=== PATIENT | female | born 1990 ===

== ENCOUNTER 2023-10-08 19:16 | Inpatient (IN) | payer OTHER ==
[2023-10-10] MEDS ORDERED: ALBUTEROL INHALER 60 PUFF/8 GM INHALER (MHU) INHALATION PRN (00:58)
--- NOTE | 2023-10-10 12:14 | P.CNPUL ---
History of Present Illness Consult date: 10/10/23 Requesting physician: Sidra Jaimes Reason for consult: dyspnea Chief complaint: Shortness of breath, chest pain History of present illness: This is a pleasant 36-year-old female patient who presented to the emergency room yesterday with complaints of shortness of breath and chest pain. She is approximately 35 weeks . She was seen and evaluated by [employer] PROGRAM COORDINATOR. She was placed on oxygen and her symptoms resolved fairly quickly. She did undergo a CT angiogram which ruled out pulmonary embolism. She is seen today in consultation in the OB department. She is awake and alert in no acute distress. Feeling much better today compared to yesterday. She states she does have a history of very mild intermittent asthma and rarely uses any inhalers in the past. Her thus far had been uncomplicated. She is maintaining good O2 saturations in the 90s on room air. She has been afebrile. Hemodynamically stable. Review of Systems REVIEW OF SYSTEMS: CONSTITUTIONAL: Denies any recent significant weight loss or weight gain. EYES: Denies change in vision. EARS, NOSE, MOUTH, THROAT: Denies headaches, denies sore throat. CARDIOVASCULAR: Positive for chest pain, no palpitations or syncopal episodes. RESPIRATORY: Positive for shortness of breath, wheeze, no cough, congestion or hemoptysis. GASTROINTESTINAL: Denies change in appetite, denies abdominal pain GENITOURINARY: Denies hematuria, denies infections. MUSKULOSKELETAL: Denies pain, denies swelling. INTEGUMENTARY: Denies rash, denies eczema. NEUROLOGICAL: Denies recent memory loss, no recent seizure activity. PSYCHIATRIC: Denies anxiety, denies depression. HEMATOLOGIC/LYMPHATIC: Denies anemia, denies enlarged lymph nodes. Medications and Allergies Allergies Allergy/AdvReac Type Severity Reaction Status Date / Time No Known Allergies Allergy Verified 10/10/23 00:58 Physical Exam Vitals: Intake and Output 10/09/23 10/10/23 10/10/23 22:59 06:59 14:59 Other: # Voids 3 Weight 121.109 kg GENERAL EXAM: Alert, pleasant 36-year-old female, on room air, comfortable in no apparent distress. HEAD: Normocephalic. EYES: Normal reaction of pupils, equal size. NOSE: Clear with pink turbinates. THROAT: No erythema or exudates. NECK: No masses, no JVD. CHEST: No chest wall deformity. LUNGS: Equal air entry with no crackles, wheeze, rhonchi or dullness. CVS: S1 and S2 normal with no audible murmur, regular rhythm. ABDOMEN: , normal bowel sounds, no guarding or rigidity. SPINE: No scoliosis or deformity SKIN: No rashes CENTRAL NERVOUS SYSTEM: No focal deficits, tone is normal in all 4 extremities. EXTREMITIES: There is no peripheral edema. No clubbing, no cyanosis. Peripheral pulses are intact. Results - Diagnostic Findings Chest x-ray: image reviewed CT scan - chest: image reviewed Assessment and Plan Assessment: Acute hypoxic respiratory failure secondary to acute exacerbation of mild intermittent chronic bronchial asthma. Pulmonary embolism ruled out 35 weeks gestational Plan: The patient was seen and evaluated CT angiogram, labs and medications reviewed Currently stable and on room air Seen and evaluated by Dr. Perera Cleared for discharge from the pulmonary standpoint Follow with her OB and PCP this week I have personally seen and examined the patient, performed the documentation and the assessment and plan as written. Number of minutes spent on the visit: 20.
--- NOTE | 2023-10-10 12:43 | P.PN ---
Subjective Progress Note Date: 10/10/23 Principal diagnosis: sob Patient currently doing well. Denies having any shortness of breath. No fevers or chills. No chest pain. No nausea or vomiting. Pulse oximetry is stable on room air currently. Objective - Vital Signs Vital signs: Intake & Output 10/09/23 10/10/23 10/10/23 18:59 06:59 18:59 Weight 121.109 kg Other: # Voids 3 - Exam Constitutional: No acute distress, conversant, pleasant Eyes: Anicteric sclerae, moist conjunctiva, no lid-lag Pupils equal round reactive to light ENMT: NC/AT Oropharynx clear, no erythema, exudates Neck: Supple, FROM, no masses, or JVD No carotid bruits No thyromegaly Lungs: Clear to auscultation Clear to percussion Normal respiratory effort, no accessory muscle use Cardiovascular: Heart regular in rate and rhythm, No murmurs, gallops, or rubs No peripheral edema Abdominal: Soft Nontender, no guarding, rebound or rigidity Abdomen moving with respiration Normoactive bowel sounds No hepatomegaly, No splenomegaly No palpable mass No abdominal wall hernia noted Skin: Normal temperature, tone, texture, turgor No induration No subcutaneous nodules No rash, lesions No ulcers Extremities: No digital cyanosis No clubbing Pedal pulses intact and symmetrical Radial pulses intact and symmetrical No calf tenderness Psychiatric: Alert and oriented to person, place and time Appropriate affect fair judgement Neuro Muscles Strength 5/5 in all 4 extremities Sensation to light touch grossly present throughout Cranial nerves II-XII grossly intact No focal sensory deficits Lymphatics: no palpable cervical or supraclavicular , or inguinal lymph nodes Assessment and Plan Plan: Acute hypoxic respiratory failure secondary to acute exacerbation of mild intermittent chronic bronchial asthma. Pulmonary embolism ruled out CT angiogram of the chest was reviewed, negative for PE Case was discussed with pulmonary service Dr. Mulugeta haider for discharge by primary service 35 weeks gestational Per OB management
--- NOTE | 2023-10-21 17:26 | XR ---
Report Patient: Patsy Cleveland Ordering Physician: Unknown, Unknown ID: [id number] Phone, Pager: Phone: N/A Pager: N/A : 1990 Age/Gender: 32Y, F Primary Location: N/A Procedure: XR Chest 1 View Study Date: 10/09/2023 10:14:00 AM EXAMINATION TYPE: XR chest 1V DATE OF EXAM: 10/09/2023 COMPARISON: NONE HISTORY: 32 year-old female shortness of breath and syncope TECHNIQUE: Single frontal view of the chest is obtained. FINDINGS: Cardiomediastinal silhouette, aorta, and pulmonary vasculature are within normal limits. H azy lower lung densities related to overlying soft tissue and portable technique. No consolidation or pleural effusion. IMPRESSION: No acute cardiopulmonary process.
--- NOTE | 2023-10-25 11:08 | CT ---
EXAMINATION TYPE: CT chest angio for PE DATE OF EXAM: 10/09/2023 COMPARISON: Radiograph same date HISTORY: 32-year-old female shortness of breath and chest pain, assess for PE. Patient 35 weeks pregn ant TECHNIQUE: Contiguous axial scanning of the chest performed with IV Contrast, patient injected with 1 00 mL of Isovue 370. Coronal/sagittal MIP reconstructions performed. CT DLP: 509.5 mGycm Automated exposure control for dose reduction was used. FINDINGS: The heart is normal size with trace anterior pericardial fluid. No flattening of the interventricular septum or reflux of contrast into the hepatic veins. The aorta is normal caliber with aberrant right subclavian artery which takes a retroesophageal cours e. No thoracic lymph adenopathy by CT size criteria. Satisfactory opacification of the pulmonary arterial system. There is excessive breathing motion in t he lower lungs. Assessment for emboli here and the segmental and subsegmental branches is limited non diagnostic due to the degree of motion. No large central pulmonary embolus. No pulmonary embolus seen in the upper midlungs. No consolidation or pleural effusion. Visualized upper abdomen shows mild splenomegaly at 14.2 cm. Partially visualized fetus. Bones: No osseous destructive process. IMPRESSION: 1. ASSESSMENT OF THE SEGMENTAL AND SUBSEGMENTAL BRANCHES OF THE LOWER LUNGS IS VERY LIMITED TO NONDIA GNOSTIC DUE TO THE PATIENT BREATHING. NO LARGE CENTRAL/LOBAR BRANCH EMBOLUS OR EVIDENCE FOR PULMONARY EMBOLUS IN THE UPPER OR MID LUNGS. 2. NO ACUTE PULMONARY PROCESS. 3. MILD SPLENOMEGALY AT 14.2 CM.
--- NOTE | 2023-11-03 16:15 | US ---
Report Patient: Patsy Cleveland Ordering Physician: Unknown, Unknown ID: [id number] Phone, Pager: Phone: N/A Pager: N/A : 1990 Age/Gender: 32Y, F Primary Location: N/A Procedure: US OB anatomy transabd Study Date: 10/08/2023 8:41:00 PM EXAMINATION TYPE: US OB anatomy transabd DATE OF EXAM: 10/08/2023 COMPARISON: NONE CLINICAL INDICATION: 32 year-old female chest pain with scant care, G1, no contractions or b leeding. TECHNIQUE: Transabdominal EXAM MEASUREMENTS: GESTATIONAL AGE / DATING Estimated LMP: 01/31/2023 Physician Established: (35 weeks/5 days) EDC: 11/07/2023 Dates by Current Scan for: (34 weeks/4 days) EDC: 11/15/2023 SURVEY IUP: Single PLACENTA: Anterior PREVIA: No previa DOMINIQUE: 11.8 cm lower end of the normal range CERVICAL LENGTH: Not assessed by transabdominal scanning. BIOMETRY PRESENTATION: Cephalic BPD: 8.32 cm 33 weeks / 4 days HC: 31.1 cm 34 weeks / 6 days AC: 30.3 cm 34 weeks / 2 days FL: 6.83 cm 35 weeks / 1 days ESTIMATED WEIGHT IN GRAMS: 2430 grams ESTIMATED WEIGHT IN LBS/OZ: 5 lbs. 6 oz. WEIGHT PERCENTAGE BASED ON ESTABLISHED DATE: 18 % HC/AC: 1.03 Normal FL/AC: 23% Normal HEART RATE: 147 bpm The survey is limited due to patient's gestational age. ANATOMY SEEN (appears to be within normal limits allowing for limitations of the patient's gestationa l age): Four Chamber Heart Situs Stomach Kidneys (bilateral) Bladder Three Vessel Cord Bilateral femur ANATOMY UNABLE TO ADEQUATELY ASSESS (due to gestational age): Lateral Vent (< 1 cm) Cisterna Magna (< 1.1 cm) Cerebellum (varies with age) Choroid Plexus (bilateral) Midline Falx Cavus Septi Pellucidi Outflow tracts: LVOT/RVOT Nose / Lips Diaphragm Cord Insert Longitudinal Spine Transverse Spine Arms (bilateral) Tibia/fibula (bilateral) IMPRESSION: 1. Single live intrauterine with estimated gestational age of 35 weeks 5 days by LMP. Curre nt ultrasound biometry is smaller (34 weeks 4 days) placing the child at the 18th percentile for [facility]t. Consider short interval follow-up to assess appropriate growth. 2. Only a few structures, survey could be assessed. A number of structures cannot be adequately assessed due to gestational age. 3. Anterior placenta without previa. Cephalic presentation.
--- NOTE | 2023-11-03 16:17 | US ---
Report Patient: Patsy Cleveland Ordering Physician: Unknown, Unknown ID: [id number] Phone, Pager: Phone: N/A Pager: N/A : 1990 Age/Gender: 32Y, N/A Primary Location: N/A Procedure: US venous doppler duplex LE BI Study Date: 10/09/2023 3:26:00 PM EXAMINATION TYPE: US venous doppler duplex LE BI DATE OF EXAM: 10/09/2023 4:04 PM COMPARISON: NONE CLINICAL INDICATION: 32-year-old leg weakness, 35 week SIDE PERFORMED: Bilateral TECHNIQUE: The lower extremity deep venous system is examined utilizing real time linear array sonog lilliana with graded compression, doppler sonography and color-flow sonography. VESSELS IMAGED: Common Femoral Vein Deep Femoral Vein Greater Saphenous Vein * Femoral Vein Popliteal Vein Small Saphenous Vein * Proximal Calf Veins (* superficial vessels) Right Leg: Negative for DVT Left Leg: Negative for DVT IMPRESSION: No evidence for DVT within the bilateral lower extremities.
== END 2023-10-10 11:05 | disposition home or self-care (01) | DRG 566 ==
LOC: EDBD → 4FBP 19:16 → INTOOBSV 19:16 → OBSVTOIN 20:10 → UNDODISOB 10-10 11:05
PROVIDERS: ADMIT Obstetrics & Gynecology; ATTEND Obstetrics & Gynecology
DX: O99.513 Diseases of the respiratory system complicating pregnancy, third trimester (principal); J96.01 Acute respiratory failure with hypoxia; J45.21 Mild intermittent asthma with (acute) exacerbation; Z3A.35 35 weeks gestation of pregnancy; Z79.899 Other long term (current) drug therapy
CPT/HCPCS: 71045; 71275; 76811; 86592; 86762; 86803; 86850; 86900; 86901; 87340; 87390; 93005; 93306; 93970; 96360; 96361; 99215

== ENCOUNTER 2023-10-30 09:56 | Outpatient (CLI) | payer OTHER ==
[2023-10-30 10:55] VITALS: BP 139/82; PULSE 111; RESP 18; TEMP 96.9
--- NOTE | 2023-12-02 09:29 | P.MSEPDOC ---
Presenting Problems - Arrival Data Date of Arrival on Unit: 10/30/23 Time of Arrival on Unit: 09:56 Mode of Transport: Ambulatory - Complaint OB-Reason for Admission/Chief Complaint: Rule Out SROM Comment: negative amnisure Medical History - Information : 1 Para: 0 Term: 0 : 0 Abortions: Spontaneous or Elective: 0 Number of Living Children: 0 - Gestational Age Gestational Age by NETTIE (wks/days): 38 Weeks and 6 Days Review of Systems - Review of Systems Constitutional: No problems Breast: No problems ENT: No problems Cardiovascular: No problems Respiratory: No problems Gastrointestinal: No problems Genitourinary: No problems Musculoskeletal: No problems Neurological: No problems Skin: Rash Comment: PUPS rash Vital Signs - Temperature Temperature: 96.9 F Temperature Source: Temporal Artery Scan - Pulse Right Pulse Rate: 111 Pulse Assessment Method: Automatic Cuff - Respirations Respiratory Rate: 18 Oxygen Delivery Method: Room Air O2 Sat by Pulse Oximetry: 99 - Blood Pressure Right Arm Sitting Blood Pressure: 139/82 Blood Pressure Mean: 101 Blood Pressure Source: Automatic Cuff - Comment Vital Signs Comment: second pressure taken and 120/83 Medical Screen Scoring - Cervical Exam Dilation (cm): 0 - Uterine Contractions Frequency From (mins): 0 - Assessment - Baby A Baseline FHR: 140 Heart Rate - NICHD Category: Category I (Normal) NST: Reactive Physician Notification - Physician Notified Physician Notified Date: 10/30/23 Physician Notified Time: 10:30 Physician: Angela Mace New Order Received: Yes (d/c w/instruction) Maternal Triage Index - Maternal Triage Index Presenting for scheduled procedure w/no complaint: No - Stat/Priority 1 Stat Priority 1: No - Urgent/Priority 2 Urgent Priority 2: No - Prompt/Priority 3 Prompt Priority 3: Yes Criteria Met for Priority 3: 38.6 not ruptured, not alexandra Disposition - Disposition OB Disposition: Triage, Discharge to home, Written follow up instructions reviewed Discharge Date: 10/30/23 Discharge Time: 10:35 I agree with the RN Medical Screening Exam: Yes Case reviewed; plan agreed upon as documented in EMR&OBIX.: Yes Diagnosis: FALSE LABOR AT OR AFTER 37 COMPLETED WEEKS OF GESTATION
== END 2023-10-30 10:35 | disposition home or self-care (01) ==
LOC: FBPOP 09:56
PROVIDERS: ATTEND Obstetrics & Gynecology Obstetrics
CPT/HCPCS: 59025; 84112; 99213

== ENCOUNTER 2023-11-05 08:13 | Inpatient (IN) | payer OTHER ==
[2023-11-05] MEDS ORDERED: TRANEXAMIC 1,000 MG/100ML-NACL 1,000 MG in EMPTY BAG 1 BAG IV PRN (08:50)
[2023-11-05] MEDS ORDERED: miSOPROStoL 200 MCG TAB RECTAL PRN (08:50)
[2023-11-05] MEDS ORDERED: METHYLERGONOVINE 0.2 MG/ML 1 ML AMP IM PRN (08:50)
[2023-11-05] MEDS ORDERED: CARBOPROST TROMETHAMINE 250 MCG/ML 1 ML AMP IM PRN (08:50)
[2023-11-05] MEDS ORDERED: miSOPROStoL 200 MCG TAB PO PRN (08:50)
[2023-11-05] MEDS ORDERED: LIDOCAINE 0.5% (PF) 5 MG/ML (50 ML SDV) SQ PRN (08:50)
[2023-11-05] MEDS ORDERED: TERBUTALINE 1 MG/ML VIAL SQ PRN (08:50)
[2023-11-05] MEDS ORDERED: OXYTOCIN 10 UNIT/ML 1 ML VIAL IM PRN (08:50)
[2023-11-05] MEDS ORDERED: OXYTOCIN 30 UNITS/500 ML NS 30 UNIT in SALINE 1 500ML.BAG IV SCH (09:00)
[2023-11-05] MEDS: LACTATED RINGERS 1,000 ML IV SCH (09:00)
[2023-11-05] MEDS ORDERED: fentaNYL (PF) 50 MCG/ML 5 ML AMP ONE (09:21)
[2023-11-05] MEDS ORDERED: ROPIVACAINE 5 MG/ML 30 ML VIAL ONE (09:21)
[2023-11-05] MEDS ORDERED: SODIUM CHLORIDE 0.9% 250 ML BAG ONE (09:21)
[2023-11-05 09:24] LABS: Anisocytosis Slight; Basophils % (A) 0 %; Eosinophils % (A) 0 %; HCT 30.6 % (34.0-46.0); Hypochromasia Slight; Lymphocytes # (A) 1.4 k/uL (1.0-4.8); Lymphocytes % (A) 15 %; MCH 23.9 pg (25.0-35.0); MCHC 32.5 g/dL (31.0-37.0); MCV 73.5 fL (80.0-100.0); Mean Platelet Volume 8.6; Microcytosis Moderate; Monocytes # (A) 0.3 k/uL (0-1.0); Monocytes % (A) 4 %; Neutrophils # (A) 7.4 k/uL (1.3-7.7); Neutrophils % (A) 79 %; Platelet Count 218 k/uL (150-450); RBC 4.17 m/uL (3.80-5.40); WBC 9.4 k/uL (3.8-10.6)
[2023-11-05 09:48] LABS: ALT 16 U/L (4-34); AST 25 U/L (14-36); African American GFR (CKD) >90 (>60 ml/min/1.73 sqM); Blood Urea Nitrogen 5 mg/dL (7-17); LDH 198 U/L (120-246); Non-African American GFR(CKD) >90 (>60 ml/min/1.73 sqM); Uric Acid 5.1 mg/dL (3.7-7.4)
[2023-11-05 10:09] LABS: Appearance,Urine Cloudy (Clear); Bacteria,Urine Rare /hpf; Bilirubin,Urine Negative (Negative); Blood,Urine Large (Negative); Color,Urine Yellow; Glucose,Urine (UA) Negative (Negative); Ketones,Urine Trace (Negative); Leukocyte Esterase,Urine Large (Negative); Mucus,Urine Many /hpf; Nitrite,Urine Negative (Negative); Protein,Urine 1+ (Negative); RBC,Urine 166 /hpf (0-5); Squamous Epithelial Cell,Urine 5 /hpf (0-4); WBC,Urine 39 /hpf (0-5)
[2023-11-05 10:33] LABS: Creatinine,Urine Random 295.6 mg/dL; Protein/Creatinine Ratio,Urine 0.068
--- NOTE | 2023-11-05 11:19 | P.HPOB ---
History of Present Illness H&P Date: 11/05/23 Chief Complaint: 39-5/7 weeks, active labor Patient is a 32-year-old 1 para 0 admitted at 39-5/7 weeks by dating parameters at her first obstetrics office in [place]. She first presented to our office in hospital at approximately 36 weeks of with an acute asthma exacerbation. Since that time she has had weekly testing secondary to late presentation to the office which has been reassuring throughout. Her was reportedly otherwise uncomplicated. On labor and delivery, she presented in active labor at 6 cm of dilation. She reported spontaneous rupture of membranes this morning prior to presentation. On labor and delivery, current heart tones are category 1. Group B strep status is negative. Obstetrical history: 1 para 0 with current statistics listed in history of present illness. EDC of 11/07/2023 was established by last menstrual period and confirmed by second trimester ultrasound. Laboratory workup is not immediately available at this time but her blood type is O+ and rubella status is immune. The remainder of the laboratory workup was within normal limits. Group B strep status is negative. Gynecologic history: Unremarkable with no history of any infections to include STDs. Review of Systems Review of systems is confined to history of present illness. Past Medical History Past Medical History: Asthma, Skin Disorder Additional Past Medical History / Comment(s): open areas on skin due to anxiety and itching History of Any Multi-Drug Resistant Organisms: None Reported Past Surgical History: No Surgical Hx Reported Past Anesthesia/Blood Transfusion Reactions: Family History of Problems w/ Anesthesia Past Psychological History: Anxiety, Depression Smoking Status: Former smoker Past Drug Use History: None Reported - Past Family History Mother History Unknown: Yes Additional Family Medical History / Comment(s): anxiety and depression Medications and Allergies Home Medications Medication Instructions Recorded Confirmed Type Sertraline [Zoloft] 50 mg PO DAILY 10/30/23 11/05/23 History Allergies Allergy/AdvReac Type Severity Reaction Status Date / Time No Known Allergies Allergy Verified 11/05/23 08:34 Exam Vital Signs Temp Pulse Resp BP 11/05/23 10:25 96.9 F L 108 H 18 163/75 11/05/23 09:35 96.9 F L 108 H 17 163/75 Intake and Output 11/04/23 11/05/23 11/05/23 22:59 06:59 14:59 Other: Weight 108.318 kg General, this is a well-developed, mildly obese female in no acute distress. Her heart has a regular rhythm and rate without murmur. Her lungs are clear to auscultation bilaterally in all [place]. Her abdomen is gravid, nondistended, has normal active bowel sounds, soft, nontender, and without any palpable masses aside from the uterine fundus. Her extremities are without any cyanosis, clubbing, or significant edema and are nontender to palpation bilaterally. Digital cervical examination demonstrates her cervix to be most recently 8 cm dilated, 90% effaced, with a vertex and presentation at -1 station. Results Result Diagrams: 11/05/23 09:03 11/05/23 09:03 Abnormal Lab Results - Last 24 Hours (Table) 11/05/23 11/05/23 11/05/23 Range/Units 08:35 09:03 09:03 Hgb 10.0 L (11.4-16.0) gm/dL Hct 30.6 L (34.0-46.0) % MCV 73.5 L (80.0-100.0) fL MCH 23.9 L (25.0-35.0) pg RDW 17.0 H (11.5-15.5) % BUN 5 L (7-17) mg/dL Urine Appearance Cloudy H (Clear) Urine Protein 1+ H (Negative) Urine Ketones Trace H (Negative) Urine Blood Large H (Negative) Ur Leukocyte Esterase Large H (Negative) Urine RBC 166 H (0-5) /hpf Urine WBC 39 H (0-5) /hpf Ur Squamous Epith Cells 5 H (0-4) /hpf Urine Bacteria Rare H (None) /hpf Urine Mucus Many H (None) /hpf Assessment and Plan (1) Active labor at term Current Visit: Yes Status: Acute Code(s): XBE2487 - SNOMED Code(s): 39396200 Plan: The patient has been admitted for active management of labor. She will have close maternal and surveillance and expectant management will be practiced. An epidural catheter has been placed for analgesia.
[2023-11-05] MEDS: OXYTOCIN 30 UNITS/500 ML NS 30 UNIT in SALINE 1 500ML.BAG IV SCH (12:29)
[2023-11-05] MEDS: LABETALOL 5 MG/ML VIAL MDV IVP STA (18:49)
[2023-11-05] MEDS ORDERED: diphenhydrAMINE 25 MG CAP PO PRN (23:12)
[2023-11-05] MEDS ORDERED: HYDROcodone/APAP 7.5-325MG 1 EACH TAB PO PRN (23:12)
[2023-11-05] MEDS ORDERED: ZOLPIDEM 5 MG TAB PO PRN (23:12)
[2023-11-05] MEDS ORDERED: LANOLIN CREAM 1 GM TUBE TOPICAL PRN (23:12)
[2023-11-05] MEDS ORDERED: HYDROcodone/APAP 5-325MG 1 EACH TAB PO PRN (23:12)
[2023-11-05] MEDS ORDERED: diphenhydrAMINE 50 MG/ML 1 ML VIAL IVP PRN ×2 (23:12)
[2023-11-05] MEDS ORDERED: HYDROCORTISONE 2.5% RECTAL CREAM 30 GM TUBE RECTAL PRN (23:12)
[2023-11-05] MEDS ORDERED: SIMETHICONE 80 MG CHEWABLE PO PRN (23:12)
[2023-11-05] MEDS ORDERED: diphenhydrAMINE 50 MG CAP PO PRN (23:12)
[2023-11-05] MEDS ORDERED: BENZOCAINE/MENTHOL SPRAY 1 GM/SPRAY AEROSOL TOPICAL PRN (23:12)
--- NOTE | 2023-11-05 23:18 | P.PROBDLV ---
Vaginal Delivery Note - . Vaginal Delivery Note: The patient is a 32-year-old 1 para 0 admitted at 39-5/7 weeks by dating parameters at her initial biomedical equipment support specialist's office in [place]. She is admitted in active labor with spontaneous rupture of membranes of apparently clear fluid with all signs reassuring, category 1 heart rate tracing. She presented to my care at approximately 36 weeks of and had reassuring testing on a weekly basis secondary to late presentation in our office. Her was otherwise essentially uncomplicated though she did present to triage initially with an acute exacerbation of asthma as well as anxiety with pulse ox rates in the low 80s and significantly prolonged deceleration which completely reversed with oxygen supplementation. She had a short, 1 to 2- day admission for that presentation and has since been stable. On labor and delivery, she presented at 6 cm of dilation and had an epidural catheter placed for analgesia. She made extraordinarily slow progress through the remainder of the active phase of labor but continued to make progress ultimately reaching anterior lip and 0 station. She pushed over the course of approximately 1 hour and 30 minutes to a normal spontaneous vaginal delivery of a viable 6 pound 10.5 ounce baby girl with Apgars of 9 at 1 minute and 9 at 5 minutes delivered in the right occiput anterior position. The placenta was delivered spontaneously, intact, and grossly normal with a grossly normal three-vessel cord inserted approximately 1 cm from the margin of the placental disc. The placenta itself was somewhat meconium stained though meconium stained fluid was never seen during the labor process. There were no lacerations of the perineum, vagina, or cervix. Estimated blood loss for the case was approximately 150 mL. There were no complications. All sponge, instrument, and needle counts were correct. Both mother and infant are resting comfortably in recovery.
[2023-11-05] MEDS: LABETALOL 100 MG TAB PO SCH (23:38)
[2023-11-06] MEDS: IBUPROFEN 600 MG TAB PO PRN (00:47)
[2023-11-06 04:15] LABS: Anisocytosis Slight; Basophils % (A) 0 %; Eosinophils % (A) 0 %; HGB 9.6 gm/dL (11.4-16.0); Hypochromasia Moderate; Lymphocytes # (A) 1.4 k/uL (1.0-4.8); Lymphocytes % (A) 10 %; MCV 74.9 fL (80.0-100.0); Mean Platelet Volume 11.3; Microcytosis Slight; Monocytes # (A) 0.6 k/uL (0-1.0); Monocytes % (A) 4 %; Neutrophils # (A) 12.3 k/uL (1.3-7.7); Neutrophils % (A) 85 %; Platelet Count 260 k/uL (150-450); RDW 17.2 % (11.5-15.5); WBC 14.5 k/uL (3.8-10.6)
[2023-11-06] MEDS: SENNOSIDES-DOCUSATE SODIUM 1 EACH TAB PO SCH (10:14)
--- NOTE | 2023-11-06 11:18 | P.PNOBGVD ---
Subjective - Subjective Patient reports: Reports appetite normal, Reports voiding normally, Reports pain well controlled, Reports ambulating normally : doing well Objective - Latest Vital Signs Latest vital signs: Vital Signs Temp Pulse Resp BP Pulse Ox 11/06/23 08:00 98.1 F 96 16 129/74 97 11/06/23 04:00 98.7 F 93 16 142/83 11/06/23 01:05 97.2 F L 93 16 129/72 11/06/23 00:50 92 16 150/87 11/06/23 00:35 93 16 154/90 11/06/23 00:20 80 16 144/83 11/06/23 00:05 80 16 144/82 11/05/23 23:50 89 16 148/81 11/05/23 23:35 83 16 152/86 11/05/23 23:20 87 16 170/95 11/05/23 23:05 97.1 F L 86 16 151/77 Intake and Output 11/05/23 11/06/23 11/06/23 22:59 06:59 14:59 Intake Total 238.133 Output Total 200 425 Balance -200 -186.867 Intake: Intake, IV Titration 238.133 Amount Oxytocin 30 Units/500 ml 238.133 Ns 30 unit In Saline 1 500ml.bag @ Per Protocol IV .Q0M [facility] Rx#:[id number] Output: Urine 200 Estimated Blood Loss 300 Output, Quantitative 125 Blood Loss Other: # Voids 1 1 1 - Exam Extremities: Present: normal Abdomen: Present: normal appearance, soft Uterus: Present: normal, firm (The uterine fundus is tonic and minimally tender below the umbilicus.) - Labs Labs: Abnormal Lab Results - Last 24 Hours (Table) 11/06/23 Range/Units 03:54 WBC 14.5 H (3.8-10.6) k/uL Hgb 9.6 L (11.4-16.0) gm/dL Hct 30.0 L (34.0-46.0) % MCV 74.9 L (80.0-100.0) fL MCH 24.0 L (25.0-35.0) pg RDW 17.2 H (11.5-15.5) % Neutrophils # 12.3 H (1.3-7.7) k/uL Assessment and Plan (1) Active labor at term Current Visit: Yes Status: Acute Code(s): DFJ4004 - SNOMED Code(s): 26316510 (2) Normal spontaneous vaginal delivery Current Visit: Yes Status: Acute Code(s): O80 - ENCOUNTER FOR FULL-TERM UNCOMPLICATED DELIVERY SNOMED Code(s): 65389881 Plan: Continue routine care. As her delivery was around midnight, she will remain in the hospital until tomorrow at which time I would anticipate discharge pending no complications.
[2023-11-07 03:08] VITALS: RESP 16
[2023-11-07] MEDS: ACETAMINOPHEN TAB 325 MG TAB PO PRN (06:30)
[2023-11-07 09:09] VITALS: BP 118/72; PULSE 89; TEMP 98.8
--- NOTE | 2023-11-07 11:29 | P.DS ---
Providers Date of admission: 11/05/23 09:34 Expected date of discharge: 11/07/23 Attending physician: Juan Daniel Victor Primary care physician: Stated None - Discharge Diagnosis(es) (1) Active labor at term Current Visit: Yes Status: Acute (2) Normal spontaneous vaginal delivery Current Visit: Yes Status: Acute Hospital Course: The patient is a 32-year-old 1 para 0 admitted at 39-5/7 weeks by dating parameters obtained in [place] at her first low voltage electrician's office. She presented late to our office at approximately 36 weeks through triage with an acute exacerbation of asthma and anxiety which nearly led to delivery at that time. This resolved with aggressive treatment with oxygen and bronchodilators. Since that time she has had reassuring testing on a weekly basis. Her had otherwise been reportedly uncomplicated. She presented to labor and delivery in active labor at 6 cm of dilation. She additionally reported she had had spontaneous rupture of membranes earlier in the morning. On labor and delivery, all signs were reassuring with a category 1 heart rate tracing. Group B strep status is negative. After she made very little progress on her own, she had Pitocin augmentation started and made extraordinarily slow progress throughout the remainder of the active phase of labor but ultimately got to dilation of anterior lip. She was ultimately able to push past the anterior lip to a normal spontaneous vaginal delivery of a viable 6 pound 10 ounce baby girl with Apgars of 9 at 1 minute and 9 at 5 minutes. The patient's course was unremarkable with vital signs remaining stable and her temperature was afebrile throughout. She delivered just prior to midnight and therefore remained in the hospital until the morning of day #2 at which time she was discharged home to follow-up in the office in 6 weeks time routinely. Discharge instructions included calling for any significantly increased bleeding or foul-smelling lochia, significantly increased fever or abdominal pain, perineal complaints, breast complaints, or anything else that concerns her. She was additionally instructed to have nothing in the vagina for at least 6 weeks time to include intercourse. She understood her instructions and agrees to follow-up as noted above. Discharge medications included continued vitamins as she has opted to breast-feed. She had additionally been started on labetalol 100 mg twice daily for blood pressures that were noted to become elevated shortly after presentation. She was provided with a prescription to continue this in the outpatient setting. She was additionally to use [id number] analgesic pain medications as needed. Maternal blood type is O+ and rubella status is immune. Procedures: #1. Epidural analgesia #2. Pitocin augmentation #3. Normal spontaneous vaginal delivery Plan - Discharge Summary New Discharge Prescriptions: No Action Sertraline [Zoloft] 50 mg PO DAILY Discharge Medication List Sertraline [Zoloft] 50 mg PO DAILY 10/30/23 [History] Follow up Appointment(s)/Referral(s): Juan Daniel Victor MD [STAFF PHYSICIAN] - 6 Weeks Discharge Disposition: HOME SELF-CARE
[2023-11-07 23:25] LABS: Hepatitis B Surface Antigen Nonreactive (Nonreactive)
[2023-11-08 13:26] LABS: HIV 2 AB Non-Reactive (Non-Reactive); HIV AB P24 Non-Reactive (Non-Reactive); HIV P24 AG Non-Reactive (Non-Reactive)
== END 2023-11-07 14:05 | disposition home or self-care (01) | DRG 560 ==
LOC: FBPOP 08:13 → 4FBP 09:34
PROVIDERS: ADMIT Obstetrics & Gynecology; ATTEND Obstetrics & Gynecology
PROC: 10E0XZZ Delivery of Products of Conception, External Approach (ICD-10-PCS; principal; 2023-11-05)
DX: O99.344 Other mental disorders complicating childbirth (principal); F41.9 Anxiety disorder, unspecified; F32.A Depression, unspecified; O77.0 Labor and delivery complicated by meconium in amniotic fluid; O99.52 Diseases of the respiratory system complicating childbirth; J45.909 Unspecified asthma, uncomplicated; Z37.0 Single live birth; Z3A.39 39 weeks gestation of pregnancy; Z79.899 Other long term (current) drug therapy; Z87.891 Personal history of nicotine dependence
CPT/HCPCS: 36415; 59025; 81001; 82565; 82570; 83615; 84112; 84156; 84450; 84460; 84520; 84550; 85025; 86762; 86780; 86850; 86900; 86901; 87340; 87390; 99213